=== PATIENT | female | born 1975 | race Caucasian/White ===

== ENCOUNTER 2022-07-07 17:21 | Emergency (ER) | payer MEDICAID, SELFPAY ==
[2022-07-07 17:53] VITALS: BP 122/85; PULSE 98; RESP 16; TEMP 36.7; O2SAT 98; BMI 21.7
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
[2022-07-07 19:00] VITALS: BP 122/85; PULSE 98; RESP 16; TEMP 36.7
== END 2022-07-07 19:01 | disposition home or self-care (01) ==
PROVIDERS: Emergency Provider Nurse Practitioner Family
DX: M25.462 Effusion, left knee (principal); M25.562 Pain in left knee
CPT/HCPCS: 73562; 99212; G0463

== ENCOUNTER 2023-04-04 20:54 | Emergency (ER) | payer MEDICAID, SELFPAY ==
[2023-04-04 20:55] VITALS: BP 181/122; PULSE 87; RESP 18; TEMP 36.8; O2SAT 98; BMI 22.8
--- NOTE | 2023-04-04 21:12 | XR_ITS ---
PROCEDURE INFORMATION: Exam: XR Chest Exam date and time: 04/04/2023 9:52 PM Age: 47 years old Clinical indication: Other: Throat pain right side; Additional info: Per TECHNIQUE: Imaging protocol: Radiologic exam of the chest. Views: 2 views. COMPARISON: No relevant prior studies available. FINDINGS: Lungs: Unremarkable. No consolidation. Pleural spaces: Unremarkable. No pleural effusion. No pneumothorax. Heart/Mediastinum: Unremarkable. No cardiomegaly. Bones/joints: Unremarkable. IMPRESSION: No acute findings.
--- NOTE | 2023-04-04 21:12 | CT_ITS ---
PROCEDURE INFORMATION: Exam: CT Neck With Contrast Exam date and time: 04/04/2023 10:07 PM Age: 47 years old Clinical indication: Throat pain; Additional info: Throat discomfort right side TECHNIQUE: Imaging protocol: Computed tomography of the neck with contrast. Radiation optimization: All CT scans at this facility use at least one of these dose optimization techniques: automated exposure control; mA and/or kV adjustment per patient size (includes targeted exams where dose is matched to clinical indication); or iterative reconstruction. Contrast material: ISOVUE; Contrast volume: 75 ml; Contrast route: IV; REPORTING DATA: Count of CT and Cardiac NM exams in prior 12 months: This patient has received 0 known CTs and 0 known cardiac nuclear medicine studies in the 12 months prior to the current study. COMPARISON: CR Chest 04/04/2023 9:52 PM FINDINGS: Pharynx: Unremarkable. No significant tonsillar enlargement. Larynx: Unremarkable. Epiglottis is normal. Prevertebral and retropharyngeal spaces: Unremarkable. Salivary glands: Normal. Glands are normal in size. Thyroid: Normal. No enlarged or calcified nodules. Lymph nodes: Unremarkable. No lymphadenopathy. Trachea: Visualized trachea is unremarkable. Lungs: Unremarkable as visualized. Bones/joints: Unremarkable. No acute fracture. Soft tissues: Unremarkable. No significant soft tissue swelling. IMPRESSION: No acute findings.
[2023-04-04 21:25] VITALS: BP 166/96; PULSE 89; O2SAT 98
[2023-04-04 21:34] LABS: Basophils % 0.7 % (0.1-2.0); Eosinophils # 0.2 K/mm3 (0.0-0.4); Eosinophils % 2.6 % (0.1-12.0); Hemoglobin 12.9 g/dL (12.2-16.2); Lymphocytes % 51.1 % (10-50); Mean Corpuscular Hemoglobin 29.9 pg (27.0-31.2); Mean Corpuscular Volume 90.4 fl (81-99); Mean Platelet Volume 7.3 fl (7.4-10.4); Monocytes # 0.4 K/mm3 (0.1-1.0); Neutrophils # 2.4 K/mm3 (1.8-7.8); Neutrophils % 39.5 % (37.0-80.0); Platelet Count 366 K/mm3 (142-424); Red Blood Count 4.32 M/mm3 (4.20-5.40); Red Cell Distribution Width 12.8 % (11.5-17.5)
[2023-04-04 21:35] LABS: MANUAL DIFFERENTIAL MANUAL DIFFERENTIAL (MANUAL DIFF)
[2023-04-04 21:43] LABS: Alanine Aminotransferase 19 U/L (12-78); Albumin Level 4.1 g/dl (3.5-5.0); Albumin/Globulin Ratio 1.4 (1.1-1.8); Alkaline Phosphatase 74 U/L (38-126); Anion Gap 8.6 mEq/L (5-15); Aspartate Amino Transferase 27 U/L (14-36); Bilirubin,Total 0.2 mg/dl (0.2-1.3); Blood Urea Nitrogen 19 mg/dl (7-17); Carbon Dioxide 25 mmol/L (22.0-30.0); Chloride 109 mmol/L (98-107); Creatinine Clearance Estimated 125 mL/min (50-200); Estimated Glomerular Filt Rate 132 ml/min (>60); GFR (African American) 160 ML/MIN (>60); Globulin 2.9 g/dL (1.3-3.2); Glucose 115 mg/dl (74-100); Potassium 3.6 mmoL/L (3.5-5.1); Sodium 139 mmol/L (136-145)
[2023-04-04 21:49] LABS: HCG Qualitative, Serum Negative (Negative)
--- NOTE | 2023-04-04 21:54 | HMH.EDGENADL ---
Discharge Plan Disposition Patient Disposition: Home, Self-Care Chief Complaint: PAIN Prescriptions Prescriptions: No Action ibuprofen [ibuprofen] 600 mg tablet 600 mg PO Q6HP PRN (Reason: Mild Pain) Qty: 30 0RF Referrals Follow up/Referrals: Provider,Referral, [Primary Care Provider] - See instructions Clinical Impressions Clinical Impression: Esophageal abrasion Instructions Patient Instructions: DI for Acute Pain -- Adult Discharge ED Provider: Libby (ED)Jaime General Adult HPI General Chief complaint: PAIN Stated complaint: possibly something stuck in throat Time Seen by Provider: 04/04/23 20:55 Mode of Arrival: Ambulatory Source of Information: Patient and Medical Record Limitations: No Limitations Description of Symptoms (Recalled from ER Triage Doc. by RN): Pt denies any difficulty swallowing or SOA History of Present Illness HPI narrative: throat pain after eating pizza this afternoon Onset (ago): hour(s) Location: neck Severity: moderate Related Data Previous Rx's Medication Instructions Recorded ibuprofen 600 mg tablet 600 mg PO Q6HP PRN Mild Pain #30 07/07/22 tabs Allergies Allergy/AdvReac Type Severity Reaction Status Date / Time codeine Allergy Verified 07/30/22 09:[address] [facility] Disclaimer: The information contained in this section may have been updated after the patient was seen, as this information can be updated by other users. Surgical History Hx of appendectomy Social History Smoking Status: Current every day smoker alcohol intake: never current occupational status: other Travel in the last 8 weeks: None ROS Obtained: Yes All systems reviewed & no additional complaints except as documented Physical Exam General General appearance: alert Head Head exam: normocephalic Eye Eye exam: Present PERRL and EOMI ENT ENT exam: Present normal oropharynx and mucous membranes moist Neck Neck exam: Present full ROM and trachea midline; Absent tenderness, lymphadenopathy or thyromegaly Respiratory Respiratory exam: Absent respiratory distress Cardiovascular Cardiovascular exam: Present regular rate Abdominal Exam Abdominal exam: Present soft Extremities Exam Extremities exam: Present full ROM Neurological Exam Neurological exam: Present alert, oriented X3 and CN II-XII intact; Absent motor sensory deficit Psychiatric Psychiatric exam: Present normal affect Skin Skin exam: Absent rash Medical Decision Making Medical Records Medical records reviewed: Yes I reviewed the patient's medical records. Cheo Inquiry Pt receiving controlled substance: No Vital Signs: 04/04/23 20:55 04/04/23 21:25 04/04/23 22:04 Temperature 98.3 F Temperature Source Oral Pulse Rate 89 Pulse Rate [Right] 87 Respiratory Rate 18 Blood Pressure 166/96 H Blood Pressure [Right Arm] 181/122 H Blood Pressure Mean [Right Arm] 141 Blood Pressure Source [Right Arm] Automatic Cuff Blood Pressure Position Blood Pressure Position [Right Arm] Sitting 02 Sat by Pulse Oximetry 98 98 Oxygen Delivery Method Room Air Room Air 04/04/23 22:04 Temperature 98.3 F Temperature Source Oral Pulse Rate 77 Pulse Rate [Right] Respiratory Rate 16 Blood Pressure 125/84 Blood Pressure [Right Arm] Blood Pressure Mean [Right Arm] Blood Pressure Source [Right Arm] Blood Pressure Position Sitting Blood Pressure Position [Right Arm] 02 Sat by Pulse Oximetry Oxygen Delivery Method Room Air Lab Data Lab results reviewed: Yes I reviewed the patient's lab results. Lab Results 04/04/23 20:25: Serum HCG, Qual Negative 04/04/23 21:25: WBC 6.0, RBC 4.32, Hgb 12.9, Hct 39.0, MCV 90.4, MCH 29.9, MCHC 33.0, RDW 12.8, Plt Count 366, MPV 7.3 L, Neut % (Auto) 39.5, Lymph % (Auto) 51.1 H, Wells % (Auto) 6.0, Eos % (Auto) 2.6, Baso % (Auto) 0.7, Neut #
[2023-04-04 22:04] VITALS: BP 125/84; PULSE 77; RESP 16; TEMP 36.8
[2023-04-04 22:13] LABS: Eosinophils % 1 % (0-3); Lymphocytes % 63 % (10-50); Monocytes % 2 % (2-9); Neutrophils % 34 % (42-76); Platelet Estimate Normal; RBC Morphology Normal; Total Cells Counted 100
[2023-04-04 22:37] LABS: Monoscreen (Rapid) Negative (Negative)
--- NOTE | 2023-04-04 23:01 | PC.NURSE ---
MD at bedside, provider list given to pt and reviewed with her.
== END 2023-04-04 23:09 | disposition home or self-care (01) ==
PROVIDERS: Emergency Provider Emergency Medicine
DX: S27.818A Other injury of esophagus (thoracic part), initial encounter (principal); R07.0 Pain in throat; F17.200 Nicotine dependence, unspecified, uncomplicated; X58.XXXA Exposure to other specified factors, initial encounter
CPT/HCPCS: 70491; 71046; 80053; 84703; 85007; 85025; 86318; 99284; 99285; Q9967

== ENCOUNTER → 2023-04-22 23:40 | Outpatient (CLI) | payer MEDICAID, SELFPAY ==
[2023-04-22 18:24] LABS: Basophils # 0.1 K/mm3 (0-0.2); Basophils % 1.1 % (0.1-2.0); Eosinophils # 0.1 K/mm3 (0.0-0.4); Eosinophils % 2.2 % (0.1-12.0); Hemoglobin 12.7 g/dL (12.2-16.2); Lymphocytes # 2.4 K/mm3 (0.7-4.5); Lymphocytes % 45.7 % (10-50); Mean Corpuscular HGB Conc 32.4 g/dL (31.8-35.4); Mean Corpuscular Hemoglobin 29.5 pg (27.0-31.2); Mean Corpuscular Volume 90.8 fl (81-99); Mean Platelet Volume 7.9 fl (7.4-10.4); Monocytes # 0.3 K/mm3 (0.1-1.0); Monocytes % 5.1 % (1.7-9.3); Neutrophils # 2.4 K/mm3 (1.8-7.8); Neutrophils % 45.8 % (37.0-80.0); Platelet Count 406 K/mm3 (142-424); Red Cell Distribution Width 12.7 % (11.5-17.5); White Blood Count 5.2 K/mm3 (4.8-10.8)
[2023-04-22 18:55] LABS: Alanine Aminotransferase 15 U/L (12-78); Albumin Level 3.9 g/dl (3.5-5.0); Albumin/Globulin Ratio 1.3 (1.1-1.8); Alkaline Phosphatase 89 U/L (38-126); Anion Gap 9.7 mEq/L (5-15); Aspartate Amino Transferase 23 U/L (14-36); Bilirubin,Total 0.2 mg/dl (0.2-1.3); Blood Urea Nitrogen 15 mg/dl (7-17); Calcium 9.3 mg/dl (8.4-10.2); Carbon Dioxide 26 mmol/L (22.0-30.0); Chloride 110 mmol/L (98-107); Chol/HDL Ratio 4.3 (1-3.5); Cholesterol 175 mg/dl (140-200); Estimated Glomerular Filt Rate 132 ml/min (>60); GFR (African American) 160 ML/MIN (>60); Globulin 2.9 g/dL (1.3-3.2); Glucose 104 mg/dl (74-100); HDL Cholesterol 41 mg/dl (40-60); Potassium 3.7 mmoL/L (3.5-5.1); Sodium 142 mmol/L (136-145); Total Protein,Serum 6.8 g/dl (6.3-8.2); Triglycerides 65 mg/dl (30-150); VLDL Cholesterol 13 mg/dL (0-40)
[2023-04-22 19:12] LABS: 25-OH Vitamin D, Total 15.4 ng/mL (30-100)
[2023-04-22 19:13] LABS: T4 (Thyroxine) 8.8 ug/dl (5.53-11.0)
[2023-04-22 19:26] LABS: Thyroid Stimulating Hormone 1.21 uIU/mL (0.465-4.68)
== END ==
PROVIDERS: PCP Emergency Medicine; Visit Provider Emergency Medicine
DX: I10 Essential (primary) hypertension (principal); E55.9 Vitamin D deficiency, unspecified; Z79.899 Other long term (current) drug therapy
CPT/HCPCS: 80053; 80061; 82306; 84436; 84443; 85025

== ENCOUNTER → 2023-06-06 15:15 | Outpatient (CLI) | payer MEDICAID, SELFPAY ==
--- NOTE | 2023-06-06 15:18 | MM_ITS ---
PROCEDURE INFORMATION: Exam: MG Bilateral Screening 3D Mammography Exam date and time: 06/06/2023 3:17 PM Age: 47 years old Clinical indication: Screening examination; Family history of breast cancer in sister; Sister's age: 50 years TECHNIQUE: Imaging protocol: Bilateral Screening tomosynthesis and 2D mammography including computer-aided detection (CAD) when performed. COMPARISON: No relevant prior studies available.If prior mammograms are provided, I am happy to add an addendum. FINDINGS: MAMMOGRAPHY: Breast composition: There are scattered areas of fibroglandular density. Mass: None. Architectural distortion: None. Calcifications: No suspicious calcifications. Asymmetric density: None. Skin thickening: None. Axillary adenopathy: None. IMPRESSION: No mammographic evidence of malignancy. Annual screening is recommended unless otherwise clinically indicated. ASSESSMENT: BI-RADS Category 1: Negative
== END ==
LOC: RAD 15:16
PROVIDERS: PCP Emergency Medicine; Visit Provider Emergency Medicine
DX: Z12.39 Encounter for other screening for malignant neoplasm of breast (principal)
CPT/HCPCS: 77063; 77067

== ENCOUNTER → 2023-07-18 08:33 | Outpatient (CLI) | payer MEDICAID, SELFPAY ==
[2023-07-18 19:36] LABS: Amphetamine/Metha Screen,Urine Negative ng/ml (<1000)
[2023-07-18 19:37] LABS: Barbiturates Screen,Urine Negative ng/ml (<200); Benzodiazepines Screen,Urine Negative ng/ml (<200)
[2023-07-18 19:39] LABS: Cannabinoid Screen,Urine Negative ng/ml (<50); Cocaine Screen,Urine Negative ng/ml (<300)
[2023-07-18 19:40] LABS: Methadone Screen,Urine Negative ng/ml (<300); Opiate Screen,Urine Negative ng/ml (<300)
[2023-07-18 19:41] LABS: Phencyclidine Screen,Urine Negative ng/ml (<25)
== END ==
PROVIDERS: PCP Emergency Medicine; Visit Provider Emergency Medicine
DX: Z79.899 Other long term (current) drug therapy (principal)
CPT/HCPCS: 80305

== ENCOUNTER 2023-08-02 05:52 | Emergency (ER) | payer MEDICAID, SELFPAY ==
[2023-08-02 05:53] VITALS: RESP 18; TEMP 36.6; O2SAT 98; BMI 27.1
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
[2023-08-02 05:57] VITALS: BP 160/107; PULSE 117; RESP 18
--- NOTE | 2023-08-02 06:12 | PC.NURSE ---
DIL in patient room at bedside.
--- NOTE | 2023-08-02 06:30 | PC.NURSE ---
Patient speaking with Dr. Lester at this time. Patient states that she wants to leave and cant stand this place. Patient leaves ER with DIL at side. Patient did not sign AMA for or discharge paperwork.
[2023-08-02 06:52] VITALS: BP 160/107; PULSE 91; RESP 22; TEMP 36.8; O2SAT 96
== END 2023-08-02 06:35 | disposition left against medical advice (07) ==
PROVIDERS: Emergency Provider Emergency Medicine
DX: R06.02 Shortness of breath; F41.1 Generalized anxiety disorder; F17.210 Nicotine dependence, cigarettes, uncomplicated; I10 Essential (primary) hypertension
CPT/HCPCS: 99283

== ENCOUNTER 2023-11-25 22:26 | Emergency (ER) | payer MEDICAID, SELFPAY ==
[2023-11-25 22:27] VITALS: BP 151/111; PULSE 105; RESP 18; TEMP 36.8; O2SAT 96; BMI 27.1
--- NOTE | 2023-11-25 22:31 | XR_ITS ---
PROCEDURE INFORMATION: Exam: XR Chest Exam date and time: 11/25/2023 10:40 PM Age: 47 years old Clinical indication: Cough; Additional info: Cough shortness of breath exposure to flu TECHNIQUE: Imaging protocol: Radiologic exam of the chest. Views: 1 view. COMPARISON: CR XR CHEST 2V 04/04/2023 9:52 PM FINDINGS: Lungs: Unremarkable. No consolidation. Pleural spaces: Unremarkable. No pleural effusion. No pneumothorax. Heart/Mediastinum: Unremarkable. No cardiomegaly. Bones/joints: Unremarkable. IMPRESSION: No acute findings.
--- NOTE | 2023-11-25 22:31 | ED_ITS ---
Discharge Plan Disposition Patient Disposition: Home, Self-Care Condition: Good Prescriptions Prescriptions: New hlbkzdxjygemajj-ecitvubqa-TH [Bromfed DM] 2-30-10 mg/5 mL syrup 5 ml PO Q6H PRN (Reason: cold symptoms) Qty: 118 0RF fluticasone propionate [Flonase Allergy Relief] 50 mcg/actuation spray,suspension 1 spray intranasal BID Qty: 16 0RF Rx Instructions: administer into each nostril ondansetron 4 mg tablet,disintegrating 4 mg PO Q8H PRN (Reason: nausea and vomiting) 4 Days Qty: 12 0RF No Action bupropion HCl 75 mg tablet 75 mg PO BID Qty: 60 2RF Clenpiq 10 mg-3.5 gram- 12 gram/160 mL solution 160 ml PO DAILY Rx Instructions: take first dose at 5-9PM evening before colonoscopy; 2nd dose the next day approximately 5 hrs before colonoscopy meloxicam 7.5 mg tablet 7.5 mg PO DAILY Qty: 30 0RF clonazepam [Klonopin] 0.5 mg tablet 0.5 mg PO TID Qty: 90 1RF hydrocodone-acetaminophen 5-325 mg tablet 1 tab PO DAILY PRN (Reason: pain) Qty: 30 0RF amlodipine [Norvasc] 5 mg tablet 5 mg PO QPM Qty: 90 0RF lisinopril 20 mg tablet 20 mg PO QAM Qty: 90 0RF trazodone 50 mg tablet 50 mg PO QHS Qty: 30 1RF cholecalciferol (vitamin D3) 1,250 mcg (50,000 unit) capsule See Rx Instructions .ROUTE .COMPLEX Qty: 5 0RF Dose Instruction: TAKE 1 CAPSULE BY MOUTH EVERY WEEK Rx Instructions: TAKE 1 CAPSULE BY MOUTH EVERY WEEK Referrals Follow up/Referrals: Charan Bynum DO [Primary Care Provider] - See instructions Activity Restrictions/Add. Instructions Additional Instructions/Restrictions: Please continue take Tylenol alternating with Motrin every 4 hours. Please try to stay hydrated with noncarbonated beverages. Please follow-up with your PCP or return to ER for any worsening symptoms or as needed. Clinical Impressions Clinical Impression: COVID-19 Stand Alone Forms Stand Alone Forms: Work/School Release Instructions Patient Instructions: DI for COVID-19 (Suspected or Confirmed ) Discharge ED Provider: Frederick,Yoko N General Adult HPI <AKASH Silva - Last Filed: 11/25/23 23:00> General Chief complaint: Upper Respiratory Infection Stated complaint: exposed to flu-body aches LUDWIG sore throat Time Seen by Provider: 11/25/23 22:30 History of Present Illness HPI narrative: Patient is a 47-year-old female presents emergency department evaluation of cough myalgias slight shortness of breath and exposure to the flu. Patient has a neighbor that has tested positive for the flu and she complains of acute onset of myalgias subjective fever sore throat. Patient denies chest pain chills hemoptysis hematochezia melena nausea vomit diarrhea. Patient is a pack-a-day smoker. Related Data Home Medications Medication Instructions Recorded Confirmed sod picosulf 10 mg-magnes 3.5 160 ml PO DAILY 07/18/23 gram-citric 12 gram/160 mL oral solution (Clenpiq) Previous Rx's Medication Instructions Recorded bupropion HCl 75 mg tablet 75 mg PO BID #60 tabs 04/22/23 amlodipine 5 mg tablet (Norvasc) 5 mg PO QPM #90 tabs 05/28/23 lisinopril 20 mg tablet 20 mg PO QAM #90 tabs 05/28/23 trazodone 50 mg tablet 50 mg PO QHS #30 tabs 05/28/23 cholecalciferol (vitamin D3) 1,250 See Rx Instructions .Route 06/30/23 mcg (50,000 unit) capsule .COMPLEX #5 caps clonazepam 0.5 mg tablet (Klonopin) 0.5 mg PO TID #90 tabs 07/18/23 hydrocodone 5 mg-acetaminophen 325 1 tab PO DAILY PRN pain #30 tabs 07/18/23 mg tablet meloxicam 7.5 mg tablet 7.5 mg PO DAILY #30 tabs 07/18/23 turlghrpgflgtjw-omdamyxswvucwqt-HJ 5 ml PO Q6H PRN cold symptoms #118 11/25/23 2 mg-30 mg-10 mg/5 mL oral syrup mL (Bromfed DM) fluticasone propionate 50 1 spray intranasal BID #16 grams 11/25/23 mcg/actuation nasal spray,suspension (Flonase Allergy Relief) ondansetron 4 mg disintegrating 4 mg PO Q8H PRN nausea and 11/25/23 tablet vomiting 4 days #12 tabs Allergies Allergy/AdvReac Type Severity Reaction Status Date / Time codeine Allergy Verified 07/18/23 13:59 PFSH <AKASH Silva - Last Filed: 11/25/23 23:00> [facility] Disclaimer: The information contained in this section may have been updated after the patient was seen, as this information can be updated by other users. Surgical History Hx of appendectomy Social History Smoking Status: Current every day smoker alcohol intake: never current occupational status: other Travel in the last 8 weeks: None <AKASH Silva - Last Filed: 11/25/23 23:00> ROS Obtained: Yes Systems reviewed as appropriate & no additional complaints except as documented Physical Exam <AKASH Silva - Last Filed: 11/25/23 23:00> General General appearance: alert and in no apparent distress Head Head exam: atraumatic and normal inspection Eye Eye exam: Present normal appearance and EOMI ENT ENT exam: Present normal exam and mucous membranes dry; Absent normal oropharynx (Posterior erythema but no exudate or drainage noted.) Neck Neck exam: Present normal inspection and full ROM; Absent lymphadenopathy Chest Chest inspection: Present normal inspection and symmetric chest wall rise Respiratory Respiratory exam: Present normal lung sounds bilaterally; Absent respiratory distress, wheezes or accessory muscle use Cardiovascular Cardiovascular exam: Present normal rhythm, tachycardia, normal heart sounds, +S1 and +S2 Abdominal Exam Abdominal exam: Present soft and normal bowel sounds; Absent distention, tenderness, guarding or rebound Extremities Exam Extremities exam: Present normal inspection and full ROM Neurological Exam Neurological exam: Present alert and oriented X3 Psychiatric Psychiatric exam: Present normal affect and normal mood Skin Skin exam: Present warm (Very warm to touch), dry and normal color Medical Decision Making <AKASH Silva - Last Filed: 11/25/23 23:00> Medical Records Medical records reviewed: Yes I reviewed the patient's medical records. Cheo Inquiry Pt receiving controlled substance: No Vital Signs: 11/25/23 22:27 11/25/23 23:21 Temperature 98.2 F 98.4 F Temperature Source Oral Oral Pulse Rate 87 Pulse Rate [Right] 105 H Respiratory Rate 18 18 Blood Pressure 151/103 H Blood Pressure [Right Arm] 151/111 H Blood Pressure Mean [Right Arm] 124 Blood Pressure Source [Right Arm] Automatic Cuff 02 Sat by Pulse Oximetry 96 Oxygen Delivery Method Room Air Room Air Lab Data Lab results reviewed: Yes I reviewed the patient's lab results. Lab Results 11/25/23 22:32: SARS-CoV-2 (PCR) Detected A, Influenza A Untype (PCR) Not detected, Influenza Type B (PCR) Not detected Orders (Tests/Meds): ED MEDICATIONS Discontinued Medications Generic Name Dose Route Start Last Admin Trade Name Tonq PRN Reason Stop Dose Admin Acetaminophen 1,000 mg 11/25/23 22:31 11/25/23 22:36 Acetaminophen 500mg Tab PO 11/25/23 22:32 1,000 mg ONCE ONE Administration Ketorolac Tromethamine 30 mg 11/25/23 22:31 11/25/23 22:36 Ketorolac 30mg/Ml Vial IM 11/25/23 22:32 30 mg ONCE ONE Administration ORDERS Category Date Time Status Chest XR -- portable [XR chest portable] Stat Exams 11/25/23 22:31 Completed Rapid PCR Covid and Flu A/B Stat Lab 11/25/23 22:32 Completed Medical Decision Narrative: In summary patient is a 47-year-old female presents to the emergency department for evaluation of cough sore throat shortness of breath and influenza exposure. Patient is hemodynamically stable and afebrile on arrival. Physical exam is significant for breath sounds clear and equal bilaterally to the bases but no chest pain with breathing or palpation. Patient is not tachypneic or tachycardic and EKG is sinus tachycardia on the monitor. Differential diagnosis includes viral or bacterial infection versus COPD exacerbation. Initial workup will be conducted with flu and COVID swabs chest x-ray. Initial interventions include acetaminophen Toradol. Initial workup reviewed by me and my informal review of her plain film chest x-ray shows no acute processes. Respiratory swabs are pending at the time of turnover to Dr. Bee at 11 PM <Yoko Frederick, DO - Last Filed: 11/25/23 23:26> Vital Signs: 11/25/23 22:27 11/25/23 23:21 Temperature 98.2 F 98.4 F Temperature Source Oral Oral Pulse Rate 87 Pulse Rate [Right] 105 H Respiratory Rate 18 18 Blood Pressure 151/103 H Blood Pressure [Right Arm] 151/111 H Blood Pressure Mean [Right Arm] 124 Blood Pressure Source [Right Arm] Automatic Cuff 02 Sat by Pulse Oximetry 96 Oxygen Delivery Method Room Air Room Air Lab Data Lab Results 11/25/23 22:32: SARS-CoV-2 (PCR) Detected A, Influenza A Untype (PCR) Not detected, Influenza Type B (PCR) Not detected Orders (Tests/Meds): ED MEDICATIONS Discontinued Medications Generic Name Dose Route Start Last Admin Trade Name Magdaleno PRN Reason Stop Dose Admin Acetaminophen 1,000 mg 11/25/23 22:31 11/25/23 22:36 Acetaminophen 500mg Tab PO 11/25/23 22:32 1,000 mg ONCE ONE Administration Ketorolac Tromethamine 30 mg 11/25/23 22:31 11/25/23 22:36 Ketorolac 30mg/Ml Vial IM 11/25/23 22:32 30 mg ONCE ONE Administration ORDERS Category Date Time Status Chest XR -- portable [XR chest portable] Stat Exams 11/25/23 22:31 Completed Rapid PCR Covid and Flu A/B Stat Lab 11/25/23 22:32 Completed ECG Data Tracing #1: I reviewed this ECG and interpreted as documented below: Normal sinus rhythm with a ventricular rate of [address] hernandez es concerning for ischemia. Normal axis and intervals. ECG initial impression date: 11/25/23 ECG initial impression time: 23:15 Medical Decision Narrative: In summary patient is a 47-year-old female presents to the emergency department for evaluation of cough sore throat shortness of breath and influenza exposure. Patient is hemodynamically stable and afebrile on arrival. Physical exam is significant for breath sounds clear and equal bilaterally to the bases but no chest pain with breathing or palpation. Patient is not tachypneic or tachycardic and EKG is sinus tachycardia on the monitor. Differential diagnosis includes viral or bacterial infection versus COPD exacerbation. Initial workup will be conducted with flu and COVID swabs chest x-ray. Initial interventions include acetaminophen Toradol. Initial workup reviewed by me and my informal review of her plain film chest x-ray shows no acute processes. I was consulted by the PLACIDO, and we discussed the complexity of the problems being addressed. I approved the treatment and management plan for this patient's care in the emergency department, thus performing a substantive portion of the medical decision making. I took over care for the patient at 2300. Swab tested positive for COVID-19. Chest x-ray is reassuring without acute cardiopulmonary process on my independent interpretation. Please see radiology read for final interpretation. I obtained EKG which is reassuring with no acute ST changes concerning for ischemia. No significant tachycardia or other concerns. On my assessment, the patient is feeling better after interventions provided. At this time, feel that she is appropriate for discharge with instructions for supportive management of likely viral syndrome. She was given prescriptions for Bromfed, Zofran, and Flonase for supportive management. She was discharged in stable condition after all questions were answered with strict return precautions. Yoko Frederick, DO Critical Care <AKASH Silva - Last Filed: 11/25/23 23:00> Critical Care Time Critical Care Time: No
[2023-11-25 22:36] LABS: Influenza A, PCR Not Detected (NotDetected); Influenza B, PCR Not Detected (NotDetected)
[2023-11-25] MEDS: ACETAMINOPHEN 500MG TAB 1000 MG PO (22:36)
[2023-11-25] MEDS: KETOROLAC 30MG/ML VIAL 30 MG IM (22:36)
[2023-11-25 23:08] LABS: Coronavirus 19, PCR Detected (NotDetected)
--- NOTE | 2023-11-25 23:13 | ECG_ITS ---
APPROVED REPORT Exam: Resting ECG HR:77 bpm ECG Measurements Heart Rate 77 AXES [place] 191 P 63 QRSd 86 QRS 40 QT 360 T 43 QTc 392 Conclusion SINUS RHYTHM NORMAL ECG UNCONFIRMED REPORT Electronically signed by : Shree Brady MD 11/26/2023 10:01:27
[2023-11-25 23:21] VITALS: BP 151/103; PULSE 87; RESP 18; TEMP 36.9; O2SAT 93
== END 2023-11-25 23:21 | disposition home or self-care (01) ==
PROVIDERS: Physician Assistant; Emergency Provider Emergency Medicine; PCP Internal Medicine
DX: U07.1 COVID-19 (principal); R51.9 Headache, unspecified; J02.9 Acute pharyngitis, unspecified; R06.02 Shortness of breath; R05.9 Cough, unspecified; F17.210 Nicotine dependence, cigarettes, uncomplicated
CPT/HCPCS: 71045; 87636; 93005; 96372; 99284

== ENCOUNTER 2024-02-01 00:48 | Emergency (ER) | payer MEDICAID, SELFPAY ==
[2024-02-01 00:49] VITALS: BP 175/114; PULSE 117; RESP 15; TEMP 36.7; O2SAT 97; BMI 27.1
--- NOTE | 2024-02-01 00:55 | ECG_ITS ---
APPROVED REPORT Exam: Resting ECG HR:100 bpm ECG Measurements Heart Rate 100 AXES IN 176 P 67 QRSd 81 QRS 46 QT 320 T 48 QTc 377 Conclusion SINUS TACHYCARDIA ABNORMAL RHYTHM ECG Electronically signed by : DEVIN TURNER, 02/01/2024 07:18:33
[2024-02-01 01:00] VITALS: BP 164/109; PULSE 98; RESP 22; O2SAT 98
--- NOTE | 2024-02-01 01:02 | ED_ITS ---
Discharge Plan Disposition Patient Disposition: Home, Self-Care Condition: Good Prescriptions Prescriptions: New lisinopril 20 mg tablet 20 mg PO DAILY Qty: 30 0RF No Action bupropion HCl 75 mg tablet 75 mg PO BID Qty: 60 2RF Clenpiq 10 mg-3.5 gram- 12 gram/160 mL solution 160 ml PO DAILY Rx Instructions: take first dose at 5-9PM evening before colonoscopy; 2nd dose the next day approximately 5 hrs before colonoscopy meloxicam 7.5 mg tablet 7.5 mg PO DAILY Qty: 30 0RF clonazepam [Klonopin] 0.5 mg tablet 0.5 mg PO TID Qty: 90 1RF hydrocodone-acetaminophen 5-325 mg tablet 1 tab PO DAILY PRN (Reason: pain) Qty: 30 0RF amlodipine [Norvasc] 5 mg tablet 5 mg PO QPM Qty: 90 0RF lisinopril 20 mg tablet 20 mg PO QAM Qty: 90 0RF trazodone 50 mg tablet 50 mg PO QHS Qty: 30 1RF cholecalciferol (vitamin D3) 1,250 mcg (50,000 unit) capsule See Rx Instructions .ROUTE .COMPLEX Qty: 5 0RF Dose Instruction: TAKE 1 CAPSULE BY MOUTH EVERY WEEK Rx Instructions: TAKE 1 CAPSULE BY MOUTH EVERY WEEK fematdnmgmekppz-mcexcdrzz-AV [Bromfed DM] 2-30-10 mg/5 mL syrup 5 ml PO Q6H PRN (Reason: cold symptoms) Qty: 118 0RF fluticasone propionate [Flonase Allergy Relief] 50 mcg/actuation spray,suspension 1 spray intranasal BID Qty: 16 0RF Rx Instructions: administer into each nostril ondansetron 4 mg tablet,disintegrating 4 mg PO Q8H PRN (Reason: nausea and vomiting) 4 Days Qty: 12 0RF Referrals Follow up/Referrals: Charan Bynum DO [Staff Physician] - See instructions Activity Restrictions/Add. Instructions Additional Instructions/Restrictions: You were evaluated in the emergency department today. Please follow-up closely with primary care for further management of your blood pressure. Return to the emergency department for new or worsening symptoms. Clinical Impressions Clinical Impression: Headache, Anxiety, Chronic hypertension Instructions Patient Instructions: DI for High Blood Pressure, DI for Headache Discharge ED Provider: Yoko Frederick General Adult HPI General Chief complaint: Headache Stated complaint: Hypertension Time Seen by Provider: 02/01/24 00:50 Mode of Arrival: EMS Source of Information: Patient Limitations: No Limitations Description of Symptoms (Recalled from ER Triage Doc. by RN): 48 yo female presents with elevated blood pressure, and associated head pain. according to patient she has been without her lisinopril for several months. Patient is aware of need to manage bps. denies neck discomfort, denies ear pain, denies sinus congestion, denies visual deficit. denies n/v/d. states when her bp elevates she eventually gets to the point of having chest pain and she would like to avoid that. History of Present Illness HPI narrative: This patient is a 48-year-old female with history of hypertension, anxiety, tobacco dependence presenting to the emergency department for evaluation with concern for high blood pressure. Patient reports that she became very stressed upon returning home today and finding her home in disarray because her son had let her dog use the bathroom everywhere inside, had trash everywhere, and had broken her bed. She states she got very worked up, anxious, and felt her face flushed. She also felt that her blood pressure was high, as she was getting a headache. She notes she is post to be on 20 mg of lisinopril daily, but she has not been able to follow-up with her primary care provider because her primary care provider was Dr. Souza who no longer works here. She states that she still has some lisinopril at home, but she only takes them as needed when she feels like her blood pressure is high. She arrived by EMS, who was called to the home by police officers after the patient called police in hopes of having her son removed from the home. This is per EMS and police officers. EMS noted that she was mildly hypertensive but otherwise vitals are reassuring. Patient complains of headache but no vision changes, numbness, tingling, chest pain, shortness of breath, or other concerns. She states that she does have some chest pains at night occasionally. Related Data Home Medications Medication Instructions Recorded Confirmed sod picosulf 10 mg-magnes 3.5 160 ml PO DAILY 07/18/23 gram-citric 12 gram/160 mL oral solution (Clenpiq) Previous Rx's Medication Instructions Recorded bupropion HCl 75 mg tablet 75 mg PO BID #60 tabs 04/22/23 amlodipine 5 mg tablet (Norvasc) 5 mg PO QPM #90 tabs 05/28/23 lisinopril 20 mg tablet 20 mg PO QAM #90 tabs 05/28/23 trazodone 50 mg tablet 50 mg PO QHS #30 tabs 05/28/23 cholecalciferol (vitamin D3) 1,250 See Rx Instructions .Route 06/30/23 mcg (50,000 unit) capsule .COMPLEX #5 caps clonazepam 0.5 mg tablet (Klonopin) 0.5 mg PO TID #90 tabs 07/18/23 hydrocodone 5 mg-acetaminophen 325 1 tab PO DAILY PRN pain #30 tabs 07/18/23 mg tablet meloxicam 7.5 mg tablet 7.5 mg PO DAILY #30 tabs 07/18/23 vsrydzfsdoymdcm-vvubobiudijvgpw-IW 5 ml PO Q6H PRN cold symptoms #118 11/25/23 2 mg-30 mg-10 mg/5 mL oral syrup mL (Bromfed DM) fluticasone propionate 50 1 spray intranasal BID #16 grams 11/25/23 mcg/actuation nasal spray,suspension (Flonase Allergy Relief) ondansetron 4 mg disintegrating 4 mg PO Q8H PRN nausea and 11/25/23 tablet vomiting 4 days #12 tabs lisinopril 20 mg tablet 20 mg PO DAILY #30 tabs 02/01/24 Allergies Allergy/AdvReac Type Severity Reaction Status Date / Time codeine Allergy [facility]ified [facility]18[facility]23 13:[facility]: The information contained in this section may have been updated after the patient was seen, as this information can be updated by other users. Surgical History Hx of appendectomy Social History Smoking Status: Current every day smoker alcohol intake: never current occupational status: other Travel in the last 8 weeks: None ROS Obtained: Yes All systems reviewed & no additional complaints except as documented Physical Exam General General appearance: alert and in no apparent distress Head Head exam: atraumatic and normocephalic Eye Eye exam: Present normal appearance, PERRL and EOMI ENT ENT exam: Present normal exam, normal oropharynx, mucous membranes moist and normal external ear exam Neck Neck exam: Present normal inspection, full ROM and trachea midline; Absent tenderness Chest Chest inspection: Present normal inspection and symmetric chest wall rise; Absent tenderness Respiratory Respiratory exam: Present normal lung sounds bilaterally; Absent respiratory distress, wheezes, stridor or accessory muscle use Cardiovascular Cardiovascular exam: Present regular rate and normal rhythm Abdominal Exam Abdominal exam: Present soft; Absent distention, tenderness or guarding Extremities Exam Extremities exam: Present normal inspection, full ROM and normal capillary refill; Absent tenderness or edema Back Exam Back exam: Present normal inspection and full ROM; Absent tenderness Neurological Exam Neurological exam: Present alert, oriented X3, CN II-XII intact and normal gait; Absent motor sensory deficit Psychiatric Psychiatric exam: Present normal affect and normal mood Skin Skin exam: Present warm and dry Medical Decision Making Medical Records Medical records reviewed: Yes I reviewed the patient's medical records. Cheo Inquiry Pt receiving controlled substance: No Vital Signs: 02/01/24 00:49 02/01/24 01:00 02/01/24 03:57 Temperature 98.1 F 98.2 F Temperature Source Oral Oral Pulse Rate 98 H 78 Pulse Rate [Right Brachial] 117 H Respiratory Rate 15 22 19 Blood Pressure 164/109 H 145/82 H Blood Pressure [Right Arm] 175/114 H Blood Pressure Mean [Right Arm] 134 Blood Pressure Source Automatic Cuff Blood Pressure Source [Right Arm] Automatic Cuff Blood Pressure Position Sitting Blood Pressure Position [Right Arm] Sitting 02 Sat by Pulse Oximetry 97 98 Oxygen Delivery Method Room Air Room Air Room Air Lab Data Lab results reviewed: Yes I reviewed the patient's lab results. Lab Results 02/01/24 00:45: WBC 8.7, RBC 4.52, Hgb 13.5, Hct 41.0, MCV 90.7, MCH 29.9, MCHC 32.9, RDW 13.3, Plt Count 472 H, MPV 7.7, Neut % (Auto) 53.9, Lymph % (Auto) 38.0, Divide % (Auto) 4.7, Eos % (Auto) 1.9, Baso % (Auto) 1.4, Neut # (Auto) 4.7, Lymph # (Auto) 3.3, Divide # (Auto) 0.4, Eos # (Auto) 0.2, Baso # (Auto) 0.1, Sodium 142, Potassium 3.3 L, Chloride 112 H, Carbon Dioxide 26, Anion Gap 7.3, BUN 14, Creatinine 0.50 L, Estimated Creat Clear 146, Estimated GFR 132, Est GFR ( Amer) 159, Glucose 115 H, Calcium 9.7, Total Bilirubin 0.3, AST 27, ALT 17, Alkaline Phosphatase 102, Troponin I < 0.01, Total Protein 7.2, Albumin 4.1, Globulin 3.1, Albumin/Globulin Ratio 1.3 02/01/24 00:45 02/01/24 00:45 Orders (Tests/Meds): ED MEDICATIONS Discontinued Medications Generic Name Dose Route Start Last Admin Trade Name Freq PRN Reason Stop Dose Admin Acetaminophen 1,000 mg 02/01/24 01:23 02/01/24 01:38 Acetaminophen 500mg Tab PO 02/01/24 01:24 1,000 mg ONCE ONE Administration Ketorolac Tromethamine 15 mg 02/01/24 01:23 02/01/24 01:38 Ketorolac 30mg/Ml Vial IV 02/01/24 01:24 15 mg ONCE ONE Administration ORDERS Category Date Time Status Complete Blood Count Auto Diff Stat Lab 02/01/24 00:45 Completed Comprehensive Metabolic Panel Stat Lab 02/01/24 00:45 Completed Troponin I Stat Lab 02/01/24 00:45 Completed ECG Data Tracing #1: I reviewed this ECG and interpreted as documented below: Sinus tachycardia with a ventricular rate of [address] changes concerning for ischemia. Normal axis and intervals. ECG initial impression date: 02/01/24 ECG initial impression time: 00:56 Medical Decision Narrative: In summary, this patient is a 48-year-old female presenting to the Emergency Department for evaluation of headache and concern for high blood pressure in the setting of medication noncompliance. Differential diagnoses considered include but are not limited to hypertension, hypertensive urgency, hypertensive emergency, anxiety, panic attack, headache, migraine. Ruling out the most morbid conditions drove assessment. It should be noted patient's history includes hypertension, tobacco dependence which are not at goal therapy. This complicates all aspects of care by increasing patient's risk for morbidity. On exam, the patient is well-appearing. She is mildly hypertensive with systolics in the 160s on my assessment and very slightly tachycardic. She is anxious and stressed at this time. I feel this is likely the cause of her vital sign abnormalities. She is neurologically intact. Workup included CBC, CMP, troponin, chest x-ray, and EKG. I independently interpreted x-ray prior to the radiologist read and noted acute focal consolidation, pneumothorax, or other concerns. Please see their read for final interpretation. Labs were obtained that demonstrated negative troponin without other acutely concerning abnormalities. Renal function is within normal limits. EKG is reassuring. Patient was given IV Toradol and oral Tylenol for symptomatic improvement of headache. On reassessment, patient had good improvement after administration of interventions above. She is resting comfortably with reassuring neurologic exam. I advised to her that typically we do not treat chronic hypertension from the emergency department, however given that she is supposed to have a prescription that she has run out of, I did refill her lisinopril. I advised that she follow-up very closely with primary care for further assessment and refills. She has best understanding and agreement.. Patient was discharged after all questions were answered. Critical Care Critical Care Time Critical Care Time: No
[2024-02-01 01:03] LABS: Chloride 112 mmol/L (98-107); Sodium 142 mmol/L (136-145)
[2024-02-01 01:04] LABS: Basophils # 0.1 K/mm3 (0-0.2); Basophils % 1.4 % (0.1-2.0); Eosinophils # 0.2 K/mm3 (0.0-0.4); Eosinophils % 1.9 % (0.1-12.0); Hemoglobin 13.5 g/dL (12.2-16.2); Lymphocytes # 3.3 K/mm3 (0.7-4.5); Mean Corpuscular HGB Conc 32.9 g/dL (31.8-35.4); Mean Corpuscular Hemoglobin 29.9 pg (27.0-31.2); Mean Corpuscular Volume 90.7 fl (81-99); Mean Platelet Volume 7.7 fl (7.4-10.4); Monocytes # 0.4 K/mm3 (0.1-1.0); Monocytes % 4.7 % (1.7-9.3); Neutrophils # 4.7 K/mm3 (1.8-7.8); Neutrophils % 53.9 % (37.0-80.0); Platelet Count 472 K/mm3 (142-424); Potassium 3.3 mmoL/L (3.5-5.1); Red Blood Count 4.52 M/mm3 (4.20-5.40); Red Cell Distribution Width 13.3 % (11.5-17.5); White Blood Count 8.7 K/mm3 (4.8-10.8)
[2024-02-01 01:06] LABS: Alanine Aminotransferase 17 U/L (12-78); Albumin Level 4.1 g/dl (3.5-5.0); Albumin/Globulin Ratio 1.3 (1.1-1.8); Alkaline Phosphatase 102 U/L (38-126); Anion Gap 7.3 mEq/L (5-15); Aspartate Amino Transferase 27 U/L (14-36); Bilirubin,Total 0.3 mg/dl (0.2-1.3); Blood Urea Nitrogen 14 mg/dl (7-17); Carbon Dioxide 26 mmol/L (22.0-30.0); Creatinine Clearance Estimated 146 mL/min (50-200); Estimated Glomerular Filt Rate 132 ml/min (>60); GFR (African American) 159 ML/MIN (>60); Globulin 3.1 g/dL (1.3-3.2); Total Protein,Serum 7.2 g/dl (6.3-8.2)
[2024-02-01 01:07] LABS: Calcium 9.7 mg/dl (8.4-10.2); Glucose 115 mg/dl (74-100)
[2024-02-01 01:19] LABS: Troponin I < 0.01 ng/ml (0.00-0.034)
[2024-02-01] MEDS: ACETAMINOPHEN 500MG TAB 1000 MG PO (01:38)
[2024-02-01] MEDS: KETOROLAC 30MG/ML VIAL 15 MG IV (01:38)
[2024-02-01 03:57] VITALS: BP 145/82; PULSE 78; RESP 19; TEMP 36.8; O2SAT 98
== END 2024-02-01 04:00 | disposition home or self-care (01) ==
PROVIDERS: Emergency Provider Emergency Medicine
DX: R51.9 Headache, unspecified (principal); R00.0 Tachycardia, unspecified; I10 Essential (primary) hypertension; F41.9 Anxiety disorder, unspecified; F17.210 Nicotine dependence, cigarettes, uncomplicated
CPT/HCPCS: 80053; 84484; 85025; 93005; 96374; 99284